=== PATIENT | female | born 1980 | race Caucasian/White ===

== ENCOUNTER → 2017-01-11 | Outpatient (CLI) | payer MEDICAID ==
[2017-01-11 16:15] LABS: HEMOGLOBIN 13.8 g/dL (12.2-16.2); LYMPH # 2.1 K/mm3 (0.7-4.5); LYMPH % 30.8 % (10-50.0)
[2017-01-11 17:18] LABS: BUN 14 mg/dL (7-18)
[2017-01-11 17:19] LABS: GFR (ESTIMATED) 113 ML/MIN (59-)
== END ==
LOC: LAB 15:46
PROVIDERS: Nurse Practitioner Family
DX: R53.83 Other fatigue (principal); E55.9 Vitamin D deficiency, unspecified